=== PATIENT | male | born 1960 | race Caucasian/White ===

== ENCOUNTER 2017-10-15 12:13 | Emergency (ER) | payer SELFPAY ==
[2017-10-15 12:15] VITALS: BP 118/65; PULSE 73; RESP 16; TEMP 37; O2SAT 99; BMI 23.1
[2017-10-15] MEDS: HYDROcodone Bitartrate/Apap 5/325 Tablet PO (12:54)
--- NOTE | 2017-10-15 15:30 | ED.VISSUMM ---
- ER Visit Summary Date of Service: 10/15/17 Chief Complaint: Right shoulder pain History of Present Illness: The patient is a 56 M who presents with pain in his right shoulder that radiates up into the right side of his neck. Patient states this has been getting worse over the past 3 days. Patient denies any specific trauma or injury. Patient states pain is worse with movement of his shoulder and right rotation of his neck. Patient denies any paresthesias or weakness. Physical Examination: Vital signs are stable. Patient is afebrile. Patient is in no acute distress. Musculoskeletal exam reveals tenderness over the right shoulder. There is no deformity. Range of motion was limited in all motions of the right shoulder secondary to pain. There is tenderness and spasm of the right cervical paraspinal muscles. Range of motion of the cervical spine was limited in right rotation right side bending secondary to pain. There is no midline tenderness. Radial pulses are equal bilateral. There are no sensory deficits noted. The remaining physical exam is within normal limits. Test Results: X-rays of the right shoulder were obtained. There is some degenerative changes. There is no acute fracture or dislocation. Emergency Department Course and Treatment: Patient was given a dose of [place] here. Patient was instructed to use ice to the area. Patient was given prescriptions for Naprosyn and Flexeril. Patient was instructed to follow-up with his primary care physician in 3-5 days. Patient understood and was agreeable with the plan. All questions were answered. Disposition: Discharge home Impression: Right shoulder strain This note was generated with [employer] dictation software. It may contain incorrect words, spelling, and punctuation that were not noted in review of the chart prior to signing ED Disposition - Plan for ED Patient: Disposition: Home or Assisted Living Chief Complaint: Upper Extremity Injury Diagnosis: Right shoulder strain Instructions: ED Sprain Shoulder Prescriptions: Cyclobenzaprine [Flexeril] 10 mg PO QHS PRN PRN #10 tab PRN Reason: Muscle Spasm Naproxen [Naprosyn] 500 mg PO BID PRN #20 tab Referrals: Care Physician,No Primary [Primary Care Provider] -
[2017-10-15 15:53] VITALS: PULSE 66; RESP 15; O2SAT 99
== END 2017-10-15 15:54 | disposition home or self-care (01) ==
PROVIDERS: Emergency Provider Emergency Medicine
DX: S46.911A Strain of unspecified muscle, fascia and tendon at shoulder and upper arm level, right arm, initial encounter (principal); X58.XXXA Exposure to other specified factors, initial encounter; Y93.9 Activity, unspecified; Y92.9 Unspecified place or not applicable; F17.200 Nicotine dependence, unspecified, uncomplicated
CPT/HCPCS: 73030; 99283

== ENCOUNTER 2018-07-15 09:34 | Day surgery (SDC) | payer OTHER, SELFPAY ==
[2018-07-15 10:23] VITALS: BP 128/79; PULSE 79; RESP 18; TEMP 36.6; O2SAT 100; BMI 23.8
--- NOTE | 2018-07-15 11:20 | RAD_ITS ---
PROCEDURE: Caudal block. DATE OF EXAMINATION: July 15, 2018. INDICATION: Male, 57 years old. Chronic low back pain. FLUOROSCOPY TIME (if supplied): (0:10) minutes/seconds. 2 images were obtained. Intraoperative imaging provided for caudal block. The spinal needle is seen overlying the mid to posterior aspect of the sacrum. RAD/Fluor Guidance for Spine Inj IMPRESSION: Intraoperative imaging provided for caudal block. Electronically Signed: Salo Garcia, at 10:17 EDT , Service support ,
[2018-07-15] MEDS: Bupivacaine 0.25% 30 ML Vial (12:30)
[2018-07-15] MEDS: MethylPREDNISolone Acetate 80 MG/ML Vial (12:32)
[2018-07-15 12:40] VITALS: BP 107/69; BP 128/79; PULSE 57; RESP 18; TEMP 36.3; O2SAT 98
[2018-07-15 12:45] VITALS: BP 119/82; BP 128/79; PULSE 59; RESP 18; O2SAT 99
[2018-07-15 12:50] VITALS: BP 115/77; BP 128/79; PULSE 56; RESP 16; O2SAT 99
[2018-07-15 12:55] VITALS: BP 128/79; BP 131/89; PULSE 53; RESP 16; TEMP 36.6; O2SAT 100
[2018-07-15 13:25] VITALS: BP 128/79
--- NOTE | 2018-07-15 14:02 | PCM.OPRPT ---
Problem List (1) Degeneration of intervertebral disc of lumbosacral region Status: Chronic (2) Radiculopathy of lumbosacral region Status: Chronic Report of Operation Date of Procedure: 07/15/18 Pre-Operative Diagnosis: Lumbosacral radiculopathy, lumbosacral generative disc disease Post-Operative Diagnosis: Lumbosacral radiculopathy, lumbosacral degenerative disc disease Surgery/Procedure Performed:: Diagnostic/therapeutic caudal epidural steroid injection Description of Surgical Findings:: PROCEDURE: Diagnostic/therapeutic caudal epidural steroid injection PREOPERATIVE DIAGNOSIS: Lumbosacral radiculopathy, lumbosacral degenerative disc disease, lumbosacral spinal stenosis POSTOPERATIVE DIAGNOSIS: Lumbosacral radiculopathy, lumbosacral degenerative disc disease, lumbosacral spinal stenosis ANESTHESIA: MAC COMPLICATIONS: None BLOOD LOSS: Minimal PROCEDURE IN DETAIL: History and physical today was reviewed. Risks and benefits of the procedure were explained. The patient understood, agreed to our procedure, and informed consent was obtained. IV inserted per routine protocol. The patient was taken to the operating room, placed in a prone position with a pillow positioned underneath the abdomen. The lower back and tailbone area was prepped and draped in a sterile fashion using iodine ?3 under fluoroscopy guidance on the lateral view the caudal space was identified the skin and subcutaneous tissue and size approximately 3 cc of 1% lidocaine using a 25-gauge regular needle under direct visualization fluoroscopy using the lateral approach using a 22-gauge 3-1/2 inch spinal needle the needle was advanced via the skin through the sacral hiatus, tip of the needle passed through the sacrococcygeal ligament advanced approximately S4 area after negative aspiration for blood or CSF a total of 3 cc of contrast were injected to confirm correct placement of the needle as well as cephalad spread the spread was followed to approximately L5 area after confirmation on AP as well as lateral view and repeated negative aspiration, a total of 15 cc of preservative-free 0.125% Marcaine with 80 mg of the Depo-Medrol was injected easily. The needle was then removed intact. The patient experienced no signs or symptoms of intrathecal, intravascular injection. The patient experienced no paraesthesia. The procedure was completed without any apparent difficult, any complication. The patient appeared to tolerate well. ASSESSMENT AND PLAN: This is a 57-year-old male with lumbosacral radiculopathy, lumbosacral degenerative disc disease, lumbosacral spinal stenosis status post caudal epidural steroid injection. The patient will continue his current medications. The patient will follow in approximately 2 weeks for reevaluation.
== END 2018-07-15 13:25 | disposition home or self-care (01) ==
LOC: SDC 09:41 → AC 10:00
PROVIDERS: Family Provider Family Medicine; PCP Family Medicine; Referring Provider Anesthesiology Pain Medicine; Visit Provider Anesthesiology Pain Medicine
PROC: 3E0S3BZ Introduction of Anesthetic Agent into Epidural Space, Percutaneous Approach (ICD-10-PCS; CPT 62282; principal; 2018-07-15 11:15)
DX: M51.17 Intervertebral disc disorders with radiculopathy, lumbosacral region (principal); M48.07 Spinal stenosis, lumbosacral region; G89.29 Other chronic pain; F17.210 Nicotine dependence, cigarettes, uncomplicated; F12.90 Cannabis use, unspecified, uncomplicated; Z79.891 Long term (current) use of opiate analgesic
CPT/HCPCS: 62323; 64483; 77003; J7120; J3490

== ENCOUNTER 2019-03-03 07:48 | Day surgery (SDC) | payer BC, SELFPAY ==
[2019-03-03 08:16] VITALS: BP 117/82; PULSE 67; RESP 16; TEMP 36.6; O2SAT 100; BMI 24.0
[2019-03-03] MEDS: Lactated Ringers 1,000 ML 100 ML IV (08:24)
[2019-03-03] MEDS: Bupivacaine 0.25% 30 ML Vial (09:02)
[2019-03-03] MEDS: MethylPREDNISolone Acetate 80 MG/ML Vial (09:02)
--- NOTE | 2019-03-03 09:09 | OP.PCM_ITS ---
Report of Operation Date of Procedure: 03/03/19 Description of Surgical Findings:: PREOPERATIVE DIAGNOSIS: Lumbosacral radiculopathy, lumbosacral degenerative disc disease, lumbosacral spinal stenosis POSTOPERATIVE DIAGNOSIS: Lumbosacral radiculopathy, lumbosacral degenerative disc disease, lumbosacral spinal stenosis PROCEDURE PERFORMED: Left sided lumbar transforaminal epidural steroid inj ection, L4-5 and L5-S1. ANESTHESIA: MAC BLOOD LOSS: Minimal COMPLICATIONS: None DESCRIPTION OF PROCEDURE: History and physical of today was reviewed. Risks and benefits of the procedure were explained. The patient understood and agreed to proceed. Informed consent was obtained. IV inserted per routine protocol. The patient was taken to the operating room and placed in the prone position with a pillow positioned underneath the abdomen. The left side of the lower back was prepped and draped in a sterile fashion using iodine x3. Under fluoroscopy guidance on oblique view, the L4 through S1 vertebral bodies were visualized. The skin and subcutaneous tissue was anesthetized with approximately 5 mL of 1% lidocaine using a 25-gauge regular needle. Under direct visualization with fluoroscopy at approximately 35-degree angle, starting on the left L4, ending on the left L5, using a 22-gauge 5-inch spinal needle, the needle was advanced via the skin. The tip of the needle was maneuvered and directed towards the inferior and medial gutter of the transverse process at the superiormost aspect of the neural foramen. Once the tip of the needle was at the vicinity of the foramen, after negative aspiration for blood or CSF, a total of 1 mL of contrast was injected in divided doses between both levels to confirm correct placement of the needle as well as medial spread. The confirmation was obtained on AP as well as lateral view. After repeated negative aspiration and confirmation on AP as well as lateral view, a total of 6 mL of preservative-free 0.25% Marcaine with 80 mg of Depo-Medrol was injected in divided doses between both levels. The needles were then removed intact. The patient experienced no sign or symptoms of intrathecal or intravascular injection. The patient experienced no paresthesia. The procedure was completed without any apparent difficulty or any complications. The patient appeared to tolerate it well. Assessment and plan: This is a 58-year-old male with lumbosacral radiculopathy, lumbosacral degenerative disc disease, lumbosacral spinal stenosis status post left-sided lumbar transforaminal epidural steroid injection L4-5, L5-S1 patient will continue his current medications, patient will follow approximately 2 weeks for reevaluation.
[2019-03-03 09:11] VITALS: BP 115/75; BP 117/82; PULSE 65; RESP 16; TEMP 36.4; O2SAT 99
[2019-03-03 09:15] VITALS: BP 116/85; BP 117/82; PULSE 67; RESP 16; O2SAT 94
--- NOTE | 2019-03-03 09:15 | RAD_ITS ---
PROCEDURE: Left L4 S1 transforaminal block. DATE OF EXAMINATION: March 03, 2019. INDICATION: Male, 58 years old. Low back pain. FLUOROSCOPY TIME (if supplied): (21 seconds) minutes/seconds. 4 images were obtained. Intraoperative imaging provided for left L4-S1 transforaminal block. RAD/Lumbar Spine 2 or 3 Views IMPRESSION: Intraoperative imaging provided for left L4-S1 transforaminal block. Electronically Signed: Salo Garcia, at 9:29 EST , Service support ,
[2019-03-03 09:20] VITALS: BP 117/81; BP 117/82; PULSE 65; RESP 16; O2SAT 94
[2019-03-03 09:27] VITALS: BP 117/81; BP 117/82; PULSE 66; RESP 16; TEMP 36.6; O2SAT 94
[2019-03-03 09:59] VITALS: BP 117/82
== END 2019-03-03 10:00 | disposition home or self-care (01) ==
LOC: SDC 07:50 → AC 07:52
PROVIDERS: Family Provider Family Medicine; PCP Family Medicine; Referring Provider Anesthesiology Pain Medicine; Visit Provider Anesthesiology Pain Medicine
PROC: 3E0S3BZ Introduction of Anesthetic Agent into Epidural Space, Percutaneous Approach (ICD-10-PCS; CPT 64483; principal; 2019-03-03 09:10)
DX: M51.17 Intervertebral disc disorders with radiculopathy, lumbosacral region (principal); M48.07 Spinal stenosis, lumbosacral region; F12.90 Cannabis use, unspecified, uncomplicated; F17.210 Nicotine dependence, cigarettes, uncomplicated; Z79.891 Long term (current) use of opiate analgesic
CPT/HCPCS: 01992; 64483; 64484; 72100; J7120

== ENCOUNTER 2019-03-31 09:23 | Day surgery (SDC) | payer BC, SELFPAY ==
[2019-03-31] VITALS (8 sets, daily range): BP systolic 110–129; BP diastolic 73–96; PULSE 57–79; RESP 16; TEMP 36.7–36.9; O2SAT 97–100; BMI 23.3
[2019-03-31] MEDS: Lactated Ringers 1,000 ML 100 ML IV (09:53)
--- NOTE | 2019-03-31 10:13 | RAD_ITS ---
PROCEDURE: Caudal block. DATE OF EXAMINATION: March 31, 2019. INDICATION: Male, 58 years old. Chronic low back pain. FLUOROSCOPY TIME (if supplied): (12.1 seconds) minutes/seconds Intraoperative fluoroscopic services provided for caudal block. RAD/Fluor Guidance for Spine Inj IMPRESSION: Intraoperative fluoroscopic services provided for caudal block. Electronically Signed: Salo Garcia, at 15:44 EST , Service support ,
[2019-03-31] MEDS: Bupivacaine 0.25% 30 ML Vial (10:20)
[2019-03-31] MEDS: MethylPREDNISolone Acetate 80 MG/ML Vial (10:20)
[2019-03-31] MEDS: 0.9% Normal Saline (Pres. free 10 ML Vial (10:20)
--- NOTE | 2019-03-31 12:07 | PCM.OPRPT ---
Report of Operation Date of Procedure: 03/31/19 Description of Surgical Findings:: PREOPERATIVE DIAGNOSIS: Lumbosacral radiculopathy, lumbosacral degenerative disc disease, lumbosacral spinal stenosis POSTOPERATIVE DIAGNOSIS: Lumbosacral radiculopathy, lumbosacral degenerative disc disease, lumbosacral spinal stenosis PROCEDURE PERFORMED: Caudal epidural steroid injection. ANESTHESIA: MAC. BLOOD LOSS: Minimal. COMPLICATIONS: None. DESCRIPTION OF PROCEDURE: History and physical of today was reviewed. Risks and benefits of the procedure were explained. The patient understood and agreed to proceed. Informed consent was obtained. IV inserted per routine protocol. The patient was taken to the operating room and placed in the prone position with a pillow positioned underneath the abdomen. The lower back and tailbone area was prepped and draped in a sterile fashion using iodine x3. Under fluoroscopy guidance on a lateral view, the caudal space was identified. The skin and subcutaneous tissue was anesthetized with approximately 3 mL of 1% lidocaine using a 25-gauge regular needle. Under direct visualization with fluoroscopy, using a 22-gauge 3-1/2-inch spinal needle, the needle was advanced via the skin through the sacral hiatus. The tip of the needle was passed through the sacrococcygeal ligament and advanced to approximately S4 area. After negative aspiration of blood or CSF, a total of 3 mL of contrast was injected to confirm correct placement of the needle as well as cephalad spread. The spread was followed to approximately L5 area. After confirmation on AP as well as lateral view and repeated negative aspiration, a total of 15 mL of preservative-free 0.125% Marcaine with 80 mg of Depo-Medrol was injected easily. The needle was then removed intact. The patient experienced no sign or symptoms of intrathecal or intravascular injection. The patient experienced no paresthesia. The procedure was completed without any apparent difficulty or any complications. The patient appeared to tolerate it well. ASSESSMENT AND PLAN: This is a 58-year-old male with lumbosacral radiculopathy, lumbosacral degenerative disc disease, lumbosacral spinal stenosis status post caudal epidural steroid injection.patient will continue his current medications patient will follow in approximately 2 weeks for reevaluation.
== END 2019-03-31 11:23 | disposition home or self-care (01) ==
LOC: SDC 09:24 → AC 09:30
PROVIDERS: PCP Family Medicine; Referring Provider Anesthesiology Pain Medicine; Visit Provider Anesthesiology Pain Medicine
PROC: 3E0S3BZ Introduction of Anesthetic Agent into Epidural Space, Percutaneous Approach (ICD-10-PCS; CPT 62282; principal; 2019-03-31 10:35)
DX: M51.17 Intervertebral disc disorders with radiculopathy, lumbosacral region (principal); M48.07 Spinal stenosis, lumbosacral region; F12.90 Cannabis use, unspecified, uncomplicated; F17.210 Nicotine dependence, cigarettes, uncomplicated; Z79.891 Long term (current) use of opiate analgesic
CPT/HCPCS: 01991; 62323; 64483; 77003; J7120; J3490